=== PATIENT | male | born 1955 | race Caucasian/White ===

== ENCOUNTER 2018-04-11 12:00 | Emergency (ER) | payer OTHER ==
[~2018-04-11] VITALS: Ht 175.3 cm; Wt 71.2 kg
[~2018-04-11 12:00] MED LIST: ASPI-869 PO; ATOR40TA PO; BIOT10006 PO; CALC-7 PO; CARV6.252 PO; LISI20TA61 PO; METF-440 PO; MULT-1168 PO; OMEG1CAP PO; VITA400C19 PO
--- NOTE | 2018-04-11 12:20 | NUR ---
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 Pt AAOx3, pt sts that he went to pharmacy to get his medication & not available that's why he came here. Denies cp, sob, dizziness, n/v @ this time. Pt seen & eval'd by Dr. Nuñez.
--- NOTE | 2018-04-11 12:26 | NUR ---
Patient discharged to home in stable condition per Dr. Nuñez's order. Written and verbal after care instructions given. Patient verbalizes understanding of instruction.
[2018-04-11 12:27] VITALS: BP 178/98
== END 2018-04-11 12:28 | disposition home or self-care (01) ==
LOC: ER 12:05
DX: Z76.0 Encounter for issue of repeat prescription (principal); I10 Essential (primary) hypertension; E11.9 Type 2 diabetes mellitus without complications; Z86.73 Personal history of transient ischemic attack (TIA), and cerebral infarction without residual deficits; Z79.84 Long term (current) use of oral hypoglycemic drugs; Z79.899 Other long term (current) drug therapy; Z79.82 Long term (current) use of aspirin
CPT/HCPCS: A4606; Z7610